=== PATIENT | female | born 1980 | race Caucasian/White ===

== ENCOUNTER → 2017-05-11 | Day surgery (SDC) | payer OTHER ==
[~2017-05-11] MED LIST: ACETAMINOPHEN 1000 MG/100 ML IV ONE; AMITRIPTYLINE H10 MG PO; BUPIVACAINE HCL 0.5% 10ML MPF VIAL INJ ONE; CLINDAMYCIN PHOS 900MG/ D5W 50 50 ML IV ONE; DEXAMETHASONE SOD PHOS INJ 4 MG/ML VIAL ONE; DOXYCYCLINE HY100 MG PO; FENTANYL CITRATE/PF 100MCG/2 ML INJ ONE; KETOROLAC TROMETHAMINE 30 MG/ML VIAL ONE; LEVSIN0.125 MG SL; LIDOCAINE HCL 2% LOCAL INJ 5 ML SDV VIAL INJ ONE; MELOXICAM7.5 MG PO; MEPERIDINE HCL INJ 50 MG/ML INJ ONE; MIDAZOLAM HCL 2 MG/2 ML VIAL ONE; MULTI-VITAMIN1 EACH PO; NEOMYCIN/POLYMYX/BACITR OINT 0.9 GM PKT ONE; ONDANSETRON HCL INJ 2 MG/ML VIAL ONE; PROPOFOL IV EMULSION 10 MG/ML 20 ML VIAL ONE; SEVOFLURANE INHAL SOLN 250 ML PEN BTL ONE; TIZANIDINE HCL4 MG PO; VIT D PO
--- NOTE | 2017-08-03 10:30 | Operative Report ---
DATE OF PROCEDURE: May 11, 2017 PREOPERATIVE DIAGNOSES 1. Hallux adductor valgus. 2. Dislocation of the interphalangeal joint. 3. Degenerative joint disease, Lisfranc's. POSTOPERATIVE DIAGNOSES 1. Hallux adductor valgus. 2. Dislocation of the interphalangeal joint. 3. Degenerative joint disease, Lisfranc's. PROCEDURES 1. Evgeny bunionectomy, left foot. 2. Edy osteotomy, left foot. 3. Human allograft injection of Lisfranc's joint, left foot. 4. Use of a posterior splint, left foot. PATHOLOGY: None. ANESTHESIA: General anesthetic. HEMOSTASIS: Pneumatic ankle tourniquet at 250 mmHg. ESTIMATED BLOOD LOSS: 10 mL. MATERIALS: Two screws from [employer], a 25 and 20, and a 10-mm staple from the right. Use of human allograft for injection into the joint. COMPLICATIONS: None. CONDITION: Stable. PROCEDURE IN DETAIL: Under mild sedation, the patient was brought to the operating room and placed on the operating table in the supine position. Following IV sedation, anesthesia was obtained by general anesthetic. At this point, the left foot was scrubbed, prepped and draped in the usual aseptic manner. It was then lowered to the table after the pneumatic ankle tourniquet was inflated. Attention was then directed to the dorsal aspect of the left foot where an incision was made overlying the 1st metatarsophalangeal joint. The incision was deepened via sharp and blunt dissection down to the level of the capsule. A capsulotomy was then performed. The capsule was then reflected off the head of the 1st metatarsal. Utilizing an oscillating saw, the 1st medial exostosis was then removed. At this point, a 60-degree Chevron type of osteotomy was performed. The head of the 1st metatarsal was moved into a more lateral position helping to close a high metatarsal angle. Two screws of a 25 and 20 were used for compression and fixation. There was noted to be adequate alignment clinically with the use of intraoperative fluoroscopy. IPJ fusion of the left foot. At this point, a linear incision was made overlying the IPJ. The incision was deepened down to the level of the capsule. Linear capsulotomy was then performed. At this point, the joint was visualized. It was noted to be about 40% dislocation. The fusion was then performed. It was prepared for arthrodesis. Two jeremiah were used from [employer] in order to fixate the fusion. There was noted to be adequate alignment clinically and with the use of intraoperative fluoroscopy. The area was then thoroughly flushed with a copious amount of normal sterile saline solution. The areas were then closed with the 1st layer with 2-0 Vicryl, 3-0 Vicryl and 4-0 nylon. Human allograft was then used into the Lisfranc's joints of the left foot, the area of DJD and the bursa. Clean dressing was applied consisting of Adaptic, 4 x 4's, Kerlix, and Webril was applied. A posterior splint was applied and secured utilizing an Sandeep bandage. The tourniquet was deflated. There was noted to be hyperemic response to all the digits. The patient tolerated the procedure and anesthesia well without complications. Was transferred to the recovery room with vital signs stable and vascular status intact to both feet. The patient will be discharged when she meets criteria. She was given instructions to be strictly nonweightbearing, to ice and elevate the foot at rest. Follow up with me in the office and to call the office for any questions, concerns or any problems arise. Job#: [id number] RAVINDER
== END | disposition home or self-care (01) ==
LOC: OR 09:09
PROVIDERS: ATTEND Podiatrist Foot & Ankle Surgery
DX: M20.12 Hallux valgus (acquired), left foot (principal); S93.112A Dislocation of interphalangeal joint of left great toe, initial encounter; M19.072 Primary osteoarthritis, left ankle and foot; M20.62 Acquired deformities of toe(s), unspecified, left foot; G47.33 Obstructive sleep apnea (adult) (pediatric); X58.XXXA Exposure to other specified factors, initial encounter
CPT/HCPCS: 28299; 76001; 81025; C1713 ×3; J1100; J1885; J2001; J2175; J2250; J2405; J3590

== ENCOUNTER → 2017-07-20 | Day surgery (SDC) | payer OTHER ==
[~2017-07-20] MED LIST changes: -BUPIVACAINE HCL 0.5% 10ML MPF VIAL INJ ONE; +BUPIVACAINE HCL 0.5% INJ 30 ML VIAL INJ ONE; -MEPERIDINE HCL INJ 50 MG/ML INJ ONE; -NEOMYCIN/POLYMYX/BACITR OINT 0.9 GM PKT ONE; +NEOSTIGMINE 1 MG/ML 10ML VIAL ONE
--- NOTE | 2017-07-20 13:59 | Operative Report ---
DATE OF PROCEDURE: July 20, 2017 PREOPERATIVE DIAGNOSES 1. Hallux abductovalgus. 2. Hallux interphalangeus with deviated interphalangeal joint. POSTOPERATIVE DIAGNOSES 1. Hallux abductovalgus. 2. Hallux interphalangeus with deviated interphalangeal joint. PROCEDURES 1. Evgeny bunionectomy. 2. Interphalangeal joint fusion. 3. Use of human allograft. 4. Use of posterior splint. 5. Use of intraoperative fluoroscopy. PATHOLOGY: None. ANESTHESIA: General anesthetic. HEMOSTASIS: Pneumatic thigh tourniquet at 250 mmHg. ESTIMATED BLOOD LOSS: Less than 10 mL. MATERIALS: 12 mL of 0.5 Marcaine plain given preop. COMPLICATIONS: None. CONDITION: Stable. PROCEDURE IN DETAIL: Under mild sedation, the patient was brought to the operating room and placed on the operating table in the supine position. Following IV sedation, anesthesia was obtained with a general anesthetic. At this point, the right foot was scrubbed, prepped and draped in the usual aseptic manner. It was then lowered to the table. Evgeny bunionectomy: Attention was then directed to the dorsal aspect of the right foot, where a linear incision was made overlying the 1st metatarsophalangeal joint. The incision was deepened via sharp and blunt dissection down to the level of the capsule. An inverted-L capsulotomy was then performed. At this point, a lateral release was performed in order to let the sesamoid swing into a more anatomical position. The extensor tendon was also tenotomized thereby reducing the contracture at the metatarsophalangeal joint. Attention was then directed to the 1st metatarsal head where the exostosis medially was removed utilizing an oscillating saw. The foot was then positioned for a [id number], 60-degree osteotomy. The head of the metatarsal was then moved into a more lateral position, helping to close the intermetatarsal angle. The osteotomy was fixated utilizing 2.5 and 2.0 screws from [employer]. There was noted to be adequate compression clinically and with the use of intraop fluoroscopy. IPJ fusion: Attention was then directed to the IPJ, where a curvilinear incision was made overlying the joint. The incision was deepened down to the level of the tendon. The extensor tendon was then tenotomized. At this point, the joint was then visualized. There was noted to be a large amount of deviation at the joint. An Edy osteotomy would be able to correct the deformity, so an IPJ fusion was performed. The joint was prepared. There was noted to be adequate alignment clinically and with the use of intraop fluoroscopy. At this point, two 10-mm jeremiah were then used for permanent fixation. There was noted to be adequate alignment clinically and with the use of intraop fluoroscopy. The area was then flushed with copious amounts of normal sterile saline solution. The use of human allograft was then used in order to promote healing, to prevent adhesions and to promote healing at the arthrodesis site. The area were then closed, closing the deepest layer with 3-0 Vicryl, then 4-0 Vicryl, then 4-0 nylon. A clean dressing was applied consisting of Adaptic ointment, 4 x 4's, Kerlix, and Webril. A posterior splint was applied and was secured utilizing an Sandeep bandage. The tourniquet was deflated, and there was noted to be hyperemic response to all the digits. The patient tolerated the procedure and the anesthesia well without complications and was transported to the recovery room with vital signs stable and vascular status intact to both feet. The patient will be discharged home when she meets criteria. She was given instructions to be strictly nonweightbearing, to ice and elevate the foot while at rest, to follow up with me in the office, and to call the office if any questions, concerns or any problems arise. Job#: [id number] JORGE
== END | disposition home or self-care (01) ==
LOC: OR 07:32
PROVIDERS: ATTEND Podiatrist Foot & Ankle Surgery
DX: M20.11 Hallux valgus (acquired), right foot (principal); M20.61 Acquired deformities of toe(s), unspecified, right foot; E66.01 Morbid (severe) obesity due to excess calories; K58.9 Irritable bowel syndrome, unspecified
CPT/HCPCS: 28299; 76000; 81025; J1100; J1885; J2001; J2250; J2405; J2710

== ENCOUNTER 2018-02-05 16:30 | Observation (INO) | payer OTHER ==
[~2018-02-05] VITALS: Ht 165.1 cm; Wt 119.0 kg
[~2018-02-05 16:30] MED LIST changes: -ACETAMINOPHEN 1000 MG/100 ML IV ONE; -BUPIVACAINE HCL 0.5% INJ 30 ML VIAL INJ ONE; -CLINDAMYCIN PHOS 900MG/ D5W 50 50 ML IV ONE; -FENTANYL CITRATE/PF 100MCG/2 ML INJ ONE; -KETOROLAC TROMETHAMINE 30 MG/ML VIAL ONE; -MIDAZOLAM HCL 2 MG/2 ML VIAL ONE; -NEOSTIGMINE 1 MG/ML 10ML VIAL ONE; +ROCURONIUM BROMIDE 10 MG/ML 5ML VIAL ONE
[2018-02-05] MEDS ORDERED: ONDANSETRON HCL INJ 2 MG/ML VIAL IV NR (16:51)
[2018-02-05] MEDS ORDERED: DIATRIZOATE MEGL/DIATRIZOA SOD 30 ML BTL PO ONE (16:58)
[2018-02-05] MEDS ORDERED: MULTIVITAMINS- 12 INJECTION 10 ML, FOLIC ACID MDV 5 MG, THIAMINE HCL INJ 100 MG in SODI... IV ONE (17:00)
[2018-02-05 17:27] LABS: BASOPHILS % 0.3 % (0.0-1.0); EOSINOPHILS # (AUTO) 0.1 (0.0-0.4); EOSINOPHILS % 0.9 % (0.0-6.0); HEMATOCRIT 39.6 % (34.2-44.1); HEMOGLOBIN 13.4 g/dL (12.0-16.0); LYMPHOCYTES # (AUTO) 2.4 (1.0-3.2); LYMPHOCYTES % 31.9 % (18.0-39.1); MEAN CORPUSCULAR HEMOGLOBIN 31.2 pg (28-32); MEAN CORPUSCULAR HGB CONC 33.8 g/dL (31-35); MEAN CORPUSCULAR VOLUME 92.1 fL (81-99); MONOCYTES # (AUTO) 0.6 (0.2-0.8); MONOCYTES % 7.4 % (4.4-11.3); NEUTROPHILS # (AUTO) 4.4 (2.1-6.9); NEUTROPHILS % 59.2 % (38.7-80.0); PLATELET COUNT 269 x10e3/uL (140-360); RED CELL DISTRIBUTION WIDTH 12.4 % (11.7-14.4)
[2018-02-05 17:47] LABS: HCG,QUANTITATIVE < 1.20 mIU/mL (0-10)
[2018-02-05 17:56] LABS: CLARITY,URINE HAZY (CLEAR); COLOR,URINE YELLOW (YELLOW)
[2018-02-05 17:57] LABS: BACTERIA,URINE FEW /HPF; BILIRUBIN,URINE NEGATIVE (NEGATIVE); EPITHELIAL CELLS,URINE MANY /LPF; KETONES,URINE TRACE (NEGATIVE); LEUKOCYTE ESTERASE ,URINE NEGATIVE (NEGATIVE); NITRITE,URINE NEGATIVE (NEGATIVE); PROTEIN,URINE DIPSTICK NEGATIVE (NEGATIVE); RBC,URINE 0-5 /HPF (0-5); URINE UROBILINOGEN 0.2 mg/dL (0.2 - 1); WBC,URINE (MAN) 0-5 /HPF (0-5)
[2018-02-05 18:18] LABS: ALANINE AMINOTRANSFERASE 42 IU/L (0-55); ALBUMIN 3.9 g/dL (3.5-5.0); ALBUMIN/GLOBULIN RATIO 0.9 (0.8-2.0); ALKALINE PHOSPHATASE 56 IU/L (40-150); ANION GAP 16.9 mmol/L (8-16); BLOOD UREA NITROGEN 12 mg/dL (7-26); BUN/CREATININE RATIO 16 (6-25); CARBON DIOXIDE 25 mmol/L (22-29); CHLORIDE 102 mmol/L (98-107); CREATININE, SERUM 0.75 mg/dL (0.57-1.11); EST GLOMERULAR FILTRATION RATE > 60 ML/MIN (60-); GLUCOSE 96 mg/dL (74-118); POTASSIUM 3.9 mmol/L (3.5-5.1); SODIUM 140 mmol/L (136-145)
[2018-02-05 19:15] LABS: AMYLASE 48 U/L (25-125); LIPASE 15 U/L (8-78); MAGNESIUM 2.1 MG/DL (1.3-2.1)
[2018-02-05] MEDS ORDERED: MORPHINE SULFATE 2 MG/ML SYR IV STA (19:40)
--- NOTE | 2018-02-05 19:40 | Diagnostic Imaging Report ---
EXAM: CT ABDOMEN/PELVIS W DATE: 02/05/2018 4:51 PM INDICATION: \S\RLQ pain, PSH: Lap band 04/2015 \S\[id number] \S\1909 COMPARISON: None TECHNIQUE: The abdomen and pelvis were scanned using a multidetector helical scanner. Coronal and sagittal reformations were obtained. IV Contrast: 100 ml Isovue 300/370 FINDINGS: LOWER THORAX: No consolidations LIVER/BILIARY: No masses. No ductal dilatation. GALLBLADDER: Unremarkable SPLEEN: Unremarkable PANCREAS: Unremarkable ADRENALS: No nodules KIDNEYS: No suspicious renal masses. Mild right pelviectasis without ureterectasis. GI TRACT: Postsurgical changes status post gastric bypass.. Appendix is thickened with surrounding inflammatory changes. VESSELS: Unremarkable PERITONEUM/RETROPERITONEUM: No free air or fluid LYMPH NODES: No lymphadenopathy REPRODUCTIVE ORGANS/BLADDER: Unremarkable SOFT TISSUES: Unremarkable BONES: No suspicious bone lesions. IMPRESSION: Acute uncomplicated appendicitis. Discussed with Dr. Monroy at 730 PM on 02/05/18 Signed by: Dr Sunshine Floyd MD on 02/05/2018 7:37 PM
[2018-02-05] MEDS ORDERED: ACETAMINOPHEN 1000 MG/100 ML IV PRN (20:00)
[2018-02-05] MEDS: LEVOFLOXACIN 500MG/D5W 100ML IV SCH (20:16)
[2018-02-05] MEDS: ONDANSETRON HCL INJ 2 MG/ML VIAL IV PRN (20:31)
[2018-02-05] MEDS: METRONIDAZOLE 500MG/NS 100ML 100 ML IV SCH ×2 (20:54→23:03)
[2018-02-05] MEDS: SODIUM CHLORIDE 0.9% 1000ML 1,000 ML IV SCH ×2 (20:54→22:48)
[2018-02-05 21:05] VITALS: BP 117/55
--- NOTE | 2018-02-05 21:26 | Pre Op History & Physical ---
CHIEF COMPLAINT: Abdominal pain. HISTORY OF PRESENT ILLNESS: The patient is a pleasant 38-year-old female, status post gastric bypass some 3 years ago having lost about 130 lbs, now weighing about 245 lbs with a BMI of approximately 30-42, who is admitted via the emergency room complaining of abdominal pain since . The pain began in the midabdominal area and then, seemed to localize to the right lower quadrant. The patient had some nausea today. She had some loose bowel movements during the last 2 days. However, she has a history of irritable bowel syndrome under the GI care of Dr. Barksdale. The patient in the emergency room was found to have acute appendicitis by CT. White count was normal. She had no fever. PAST MEDICAL HISTORY: No history of hypertension, high blood pressure, diabetes, epilepsy, convulsion. There is history of obesity. He has history of irritable bowel syndrome as previously described. SURGICAL HISTORY: As previously stated. ALLERGIES: SHE HAS NO KNOWN ALLERGIES. CURRENT MEDICATIONS: Amitriptyline and another medicine, which she does not remember. SOCIAL HISTORY: She does not drink. She does not smoke. REVIEW OF SYSTEMS: Unremarkable except for what has been stated in the history of present illness. PHYSICAL EXAMINATION GENERAL: A 38-year-old female, in no acute distress. VITAL SIGNS: She is afebrile with stable vital signs. HEAD, EYES, EARS, NOSE, AND THROAT: No active process. NECK: Supple. Trachea midline. LUNGS: Clear. HEART: Regular sinus rhythm. ABDOMEN: Soft, obese, with tenderness on the right lower quadrant over McBurney's point on deep palpation. Examination of the flanks reveals no tenderness. EXTREMITIES: No clubbing, cyanosis or edema. NEUROLOGIC: Nonfocal. ASSESSMENT: Acute uncomplicated appendicitis. The plan is to admit, IV antibiotics, hydration, and proceed with laparoscopy tomorrow at 9 a.m. Job#: [id number] CQ
[2018-02-05 21:53] VITALS: BP 117/55
[2018-02-05 22:06] VITALS: BP 117/55
[2018-02-05] MEDS ORDERED: IOPAMIDOL 370 MG/ML 200 ML INFUS..BTL INJ ONE (22:17)
[2018-02-05] MEDS ORDERED: SODIUM CHLORIDE 0.9% 50ML 50 ML ONE (22:17)
[2018-02-06] VITALS (8 sets, daily range): BP systolic 107–122; BP diastolic 53–69
[2018-02-06] MEDS: HYDROMORPHONE 1MG/1ML INJ IV PRN ×4 (00:17→19:43)
[2018-02-06] MEDS: METRONIDAZOLE 500MG/NS 100ML 100 ML IV SCH ×4 (05:22→23:13)
[2018-02-06 05:49] LABS: BASOPHILS % 0.3 % (0.0-1.0); EOSINOPHILS # (AUTO) 0.1 (0.0-0.4); EOSINOPHILS % 0.9 % (0.0-6.0); HEMATOCRIT 34.1 % (34.2-44.1); HEMOGLOBIN 11.6 g/dL (12.0-16.0); LYMPHOCYTES # (AUTO) 2.5 (1.0-3.2); LYMPHOCYTES % 37.4 % (18.0-39.1); MEAN CORPUSCULAR HEMOGLOBIN 31.6 pg (28-32); MEAN CORPUSCULAR VOLUME 92.9 fL (81-99); MONOCYTES # (AUTO) 0.6 (0.2-0.8); MONOCYTES % 9.1 % (4.4-11.3); NEUTROPHILS # (AUTO) 3.4 (2.1-6.9); NEUTROPHILS % 52.1 % (38.7-80.0); PLATELET COUNT 222 x10e3/uL (140-360); RED BLOOD COUNT 3.67 x10e6/uL (3.6-5.1); RED CELL DISTRIBUTION WIDTH 12.5 % (11.7-14.4)
[2018-02-06 06:28] LABS: ALANINE AMINOTRANSFERASE 31 IU/L (0-55); ALBUMIN 3.2 g/dL (3.5-5.0); ALBUMIN/GLOBULIN RATIO 0.9 (0.8-2.0); ALKALINE PHOSPHATASE 46 IU/L (40-150); ANION GAP 10.7 mmol/L (8-16); BLOOD UREA NITROGEN 10 mg/dL (7-26); BUN/CREATININE RATIO 14 (6-25); CARBON DIOXIDE 26 mmol/L (22-29); CHLORIDE 103 mmol/L (98-107); CREATININE, SERUM 0.72 mg/dL (0.57-1.11); EST GLOMERULAR FILTRATION RATE > 60 ML/MIN (60-); GLUCOSE 87 mg/dL (74-118); POTASSIUM 3.7 mmol/L (3.5-5.1); SODIUM 136 mmol/L (136-145)
[2018-02-06] MEDS: ONDANSETRON HCL INJ 2 MG/ML VIAL IV PRN ×2 (07:25→15:42)
[2018-02-06] MEDS ORDERED: FENTANYL CITRATE/PF 100MCG/2 ML INJ ONE ×2 (08:47→11:23)
[2018-02-06] MEDS ORDERED: MIDAZOLAM HCL 2 MG/2 ML VIAL ONE (08:48)
[2018-02-06] MEDS ORDERED: BUPIVACAINE 0.25%/EPI 30ML SDV INJ ONE (08:49)
[2018-02-06] MEDS ORDERED: LEVOFLOXACIN 500MG/D5W 100ML 100 ML IV ONE (11:08)
--- NOTE | 2018-02-06 11:59 | Operative Report ---
DATE OF PROCEDURE: February 06, 2018 PREOPERATIVE DIAGNOSIS: Acute appendicitis. POSTOPERATIVE DIAGNOSIS: Acute appendicitis. PROCEDURE PERFORMED: Laparoscopic appendectomy. ANESTHESIA: General endotracheal. ESTIMATED BLOOD LOSS: Minimal. DRAINS: None. COMPLICATIONS: None. INDICATIONS AND FINDINGS: The patient is a 38-year-old, morbidly obese female status post gastric bypass 2 years ago, admitted complaining of abdominal pain since prior to admission. The patient came to the emergency room and was found to have acute appendicitis. White count was normal. INTRAOPERATIVE FINDINGS: Acute retrocecal appendicitis with a short and inflamed appendix that was located behind the cecum. DESCRIPTION OF PROCEDURE: With the patient lying on the operative table in the supine position, after administration of general endotracheal anesthesia, she was prepped and draped for laparoscopic appendectomy. The procedure was begun by establishing a pneumoperitoneum in the umbilical site after a stab wound was made in that location and the Veress needle introduced. A pneumoperitoneum was insufflated to 15 mm of pressure, and then the 11-12 trocar was placed. We placed 3 extra trocars, one in the right upper quadrant, one in the suprapubic area and the other one in the left lower quadrant, in order to facilitate exposure of the appendix. The appendix was then identified lying behind the cecum and attached to the lateral wall. Then we had to mobilize the cecum until we identified the appendix. It was carried posteriorly. After we mobilized the appendix, as we did it, we had to cauterize the mesoappendix gradually until the only left structure was the appendix as it attached to the cecal junction. The appendix at that level was very soft and pliable. We had full visualization of the terminal ileum as it joined the cecum. Then that was carefully preserved. We fired the Endo DIANA using the blue stapler and then placed the appendix in an Endo bag and removed it through the umbilical port. We inspected the operative field. There was some oozing coming from the appendiceal mesentery. No pumper, just some oozing from the fat, and that was cauterized. Then we irrigated the right lower quadrant, the pelvis and the right gutter until the effluent was fluid. We ascertained that there was no active bleeding, which none was seen, and no bowel leak, none was seen. Then we released the pneumoperitoneum and closed the wound using #0 Vicryl for the umbilical fascia, 3-0 Vicryl for the subcutaneous tissue in that location as well as subxiphoid port, and the skin of all the ports was closed using jeremiah. Marcaine 0.25% with epinephrine was given as a local block. The patient tolerated the procedure well and was taken to the recovery room in stable condition. Job#: [id number]
[2018-02-06] MEDS: LACTATED RINGER'S 1,000 ML INJ SCH ×2 (12:42→19:43)
[2018-02-06] MEDS: LEVOFLOXACIN 500MG/D5W 100ML IV SCH (19:42)
[2018-02-07 01:36] VITALS: BP 121/69
[2018-02-07] MEDS: HYDROMORPHONE 1MG/1ML INJ IV PRN ×3 (03:15→19:59)
[2018-02-07] MEDS: LACTATED RINGER'S 1,000 ML INJ SCH (03:52)
[2018-02-07 04:00] VITALS: BP 125/56
[2018-02-07] MEDS: METRONIDAZOLE 500MG/NS 100ML 100 ML IV SCH ×4 (05:00→23:06)
[2018-02-07 05:30] LABS: BASOPHILS % 0.1 % (0.0-1.0); EOSINOPHILS % 0.2 % (0.0-6.0); HEMATOCRIT 33.5 % (34.2-44.1); LYMPHOCYTES # (AUTO) 2.3 (1.0-3.2); LYMPHOCYTES % 28.2 % (18.0-39.1); MEAN CORPUSCULAR HGB CONC 32.8 g/dL (31-35); MEAN CORPUSCULAR VOLUME 94.4 fL (81-99); MONOCYTES # (AUTO) 0.7 (0.2-0.8); MONOCYTES % 8.9 % (4.4-11.3); NEUTROPHILS # (AUTO) 5.1 (2.1-6.9); NEUTROPHILS % 62.4 % (38.7-80.0); PLATELET COUNT 255 x10e3/uL (140-360); RED BLOOD COUNT 3.55 x10e6/uL (3.6-5.1); RED CELL DISTRIBUTION WIDTH 12.3 % (11.7-14.4)
[2018-02-07 06:05] LABS: ANION GAP 13.3 mmol/L (8-16); BLOOD UREA NITROGEN 9 mg/dL (7-26); BUN/CREATININE RATIO 12 (6-25); CALCIUM 9.4 mg/dL (8.4-10.2); CARBON DIOXIDE 27 mmol/L (22-29); CHLORIDE 103 mmol/L (98-107); CREATININE, SERUM 0.73 mg/dL (0.57-1.11); EST GLOMERULAR FILTRATION RATE > 60 ML/MIN (60-); GLUCOSE 94 mg/dL (74-118); POTASSIUM 4.3 mmol/L (3.5-5.1); SODIUM 139 mmol/L (136-145)
[2018-02-07 08:05] VITALS: BP 123/58
[2018-02-07] MEDS: HYDROCODONE/APAP 7.5MG-325MG 1 EA TAB PO PRN ×2 (08:21→16:30)
[2018-02-07 11:28] VITALS: BP 135/61
[2018-02-07] MEDS ORDERED: SODIUM CHLORIDE 0.9% 250ML 250 ML ONE (13:12)
[2018-02-07 15:51] VITALS: BP 127/60
[2018-02-07] MEDS: ONDANSETRON HCL INJ 2 MG/ML VIAL IV PRN (17:40)
[2018-02-07] MEDS: LEVOFLOXACIN 500MG/D5W 100ML IV SCH (19:59)
[2018-02-07 20:00] VITALS: BP_SYST 117; BP_SYST 174; BP_DIAS 63; BP_DIAS 81
[2018-02-08] VITALS: BP 117/56
[2018-02-08] MEDS: HYDROMORPHONE 1MG/1ML INJ IV PRN (02:52)
[2018-02-08 04:00] VITALS: BP 106/60
[2018-02-08] MEDS: METRONIDAZOLE 500MG/NS 100ML 100 ML IV SCH (05:25)
[2018-02-08] MEDS: HYDROCODONE/APAP 7.5MG-325MG 1 EA TAB PO PRN (06:33)
[2018-02-08 08:28] VITALS: BP 107/60
== END 2018-02-08 11:21 | disposition home or self-care (01) ==
LOC: ER 16:30 → INTOOBSV 19:51 → ERHOLD 19:51 → MED/SURG 20:50 → IMCU 02-07 11:22
PROVIDERS: ADMIT Surgery; ATTEND Surgery
DX: K35.3 Acute appendicitis with localized peritonitis (principal); Z98.84 Bariatric surgery status
CPT/HCPCS: 36415 ×3; 44970; 74177; 80048; 80053 ×2; 81001; 82150; 83605; 83690; 83735; 84702; 85025 ×3; 87040; 87086; 88304; 96361; 99284; C1766; G0378 ×4; J1100; J1170 ×3; J1956 ×3; J2001; J2250; J2270; J2405 ×3; J3411; J7030; J7050; J7120; Q9967

== ENCOUNTER → 2018-05-10 | Day surgery (SDC) | payer OTHER ==
[~2018-05-10] MED LIST changes: +ACETAMINOPHEN/CODEINE 300MG - 30MG TAB ONE; +BUPIVACAINE HCL 0.5% INJ 30 ML VIAL INJ ONE; +CEFAZOLIN SOD 2 GM/D5W 50ML 50 ML IV ONE; +KETOROLAC TROMETHAMINE 30 MG/ML VIAL ONE; +MIDAZOLAM HCL 2 MG/2 ML VIAL ONE; +NEOSTIGMINE 1 MG/ML 10ML VIAL ONE; +OMEPRAZOLE40 MG PO; -ROCURONIUM BROMIDE 10 MG/ML 5ML VIAL ONE
--- OUTSIDE RECORDS SUMMARY | 2018-05-10 06:24 | XMS REPORT | Summary of Care ---
Author Author Sanna Robles M.A. Unknown Address [facility] Phone Unavailable Care Team Providers Care Pricing Lead Name Role Phone GENARO WALLS M.D. Unavailable Unavailable OLGA MARR M.D. Unavailable Unavailable GENARO PUTNAM DO Unavailable Unavailable Unavailable Unavailable Functional Status Name Dates Details Functional status health issues are not documented Status: Name Dates Details Cognitive status health issues are not documented Status: Problems Name Dates Details Mass of joint of left elbow (719.62, M25.822) Status: Active S/P gastric bypass (V45.86, Z98.84) Status: Active Right knee pain (719.46, M25.561) Status: Active Pain of left breast (611.71, N64.4) Status: Active Encounter for gynecological examination with Papanicolaou smear of cervix (V72.31, Z01.419) Status: Active Cyst, ovarian (620.2, N83.209) Status: Active GERD (gastroesophageal reflux disease) (530.81, K21.9) Status: Active Abdominal pain (789.00, R10.9) Status: Active Medications Name Dates Details TiZANidine HCl - 4 MG Oral Capsule TAKE 1 CAPSULE DAILY Active Meloxicam 7.5 MG Oral Tablet TAKE 1 TABLET DAILY WITH FOOD. Days: 30; Qty: 30 X Tablet; Refill: 3 * Quantity: 30 Refills: 3 GENARO WALLS M.D. * Start : 10-Mar-2017 Active Amitriptyline HCl - 10 MG Oral Tablet TAKE 1 TABLET AT BEDTIME. * Quantity: 30 Refills: 11 OLGA MARR M.D. * Start : 17-Jun-2017 Active Hyoscyamine Sulfate 0.125 MG Sublingual Tablet Sublingual PLACE 0.125 MG Twice daily * Quantity: 90 Refills: OLGA REAVES M.D. * Start : 20-Aug-2017 Active Omeprazole 40 MG Oral Capsule Delayed Release TAKE 1 CAPSULE Twice daily 30 minutes before breakfast and dinner * Quantity: 60 Refills: 11 OLGA MARR M.D. Start : 30-Sep-2017 Active Allergies and Adverse Reactions Name Dates Details Penicillins (Allergy) Status: Active Past Medical History Name Dates Details History of back pain (V13.59, Z87.39) Status: Resolved History of Hernia (553.9, K46.9) Status: Resolved Procedures Procedure Dates Details History of Paraesophageal hiatus hernia repair Completed History of Gastric bypass surgery Completed History of Foot surgery Completed Immunization Name Dates Details Immunizations not documented Family History Name Dates Details Family history of liver cancer (V16.0, Z80.0) Status: Active Name Dates Details Family history of hypertension (V17.49, Z82.49) Status: Active Family history of colonic polyps (V18.51, Z83.71) Status: Active Family history of skin cancer (V16.8, Z80.8) Status: Active Name Dates Details Family history of malignant neoplasm of uterus (V16.49, Z80.49) Status: Active Family history of skin cancer (V16.8, Z80.8) Status: Active Name Dates Details Family history of arthritis (V17.7, Z82.61) Status: Active Name Dates Details Family history of hypertension (V17.49, Z82.49) Status: Active Family history of arthritis (V17.7, Z82.61) Status: Active Family history of skin cancer (V16.8, Z80.8) Status: Active Name Dates Details Family history of malignant neoplasm of prostate (V16.42, Z80.42) Status: Active Social History Name Dates Details - Status: Name Dates Details Never smoker Vital Signs Date Test Result Details [id number] BP Systolic 146 mm[Hg] Status: Comments: Location: LUE; Position: Sitting BP Diastolic 87 mm[Hg] Status: Comments: Location: LUE; Position: Sitting Height 65 in Status: Weight 264.4 lb Status: Body Mass Index Calculated 44 kg/m2 Status: Body Surface Area Calculated 2.23 m2 Status: Temperature 98.5 f Status: Comments: Method: Oral Heart Rate 64 /min Status: Comments: Location: L Brachial Artery; Respiration Rate 18 /min Status: Physical Findings 4 Status: Comments: Pain Scale Results Date Description Value Details Results not documented Plan of Care Name Dates Details Planned Observations Planned Goals not documented Planned Encounters Appointment; OLGA MARR M.D. On: 25-Feb-2018 13:00 Interventions Provided Medication Changes* Omeprazole 40 MG Oral Capsule Delayed Release - Renew Plan* Continue PPI, increase to twice daily dosing. Patient to take antacids as needed. * Continue amitriptyline and hyoscyamine. * Return to clinic in 2 months. Patient is to call for symptoms worsen Instructions Name Dates Details Instructions not documented Encounters Appointment; OLGA MARR M.D. Encounter Diagnosis: Problem not documented On: 06-Jan-2017 11:30 Appointment; OLGA MARR M.D. Encounter Diagnosis: Problem not documented On: 28-Jan-2017 9:15 Appointment; TENZIN KRAUS M.D. Encounter Diagnosis: Problem not documented On: 12-Feb-2017 9:00 Appointment; WESLEY JOHNSON M.D. Encounter Diagnosis: Problem not documented On: 25-Feb-2017 8:00 Appointment; GENARO WALLS M.D. Encounter Diagnosis: Problem not documented On: 10-Mar-2017 10:30 Appointment; OLGA MARR M.D. Encounter Diagnosis: Problem not documented On: 17-Jun-2017 11:00 Appointment; MATT HOROWITZ M.D. Encounter Diagnosis: Problem not documented On: 20-Sep-2017 13:00 Appointment; BUDDY BOYD M.D. Encounter Diagnosis: Problem not documented On: 28-Sep-2017 11:00 Appointment; OLGA MARR M.D. Encounter Diagnosis: Problem not documented On: 30-Sep-2017 13:45 Appointment; OLGA MARR M.D. Encounter Diagnosis: Problem not documented On: 20-Dec-2017 13:45
[2018-05-10 09:45] VITALS: BP 116/72
--- NOTE | 2018-05-10 13:19 | Operative Report ---
DATE OF PROCEDURE: May 10, 2018 PREOPERATIVE DIAGNOSES 1. Chronic plantar fasciitis, left foot. 2. 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 POSTOPERATIVE DIAGNOSES 1. Chronic plantar fasciitis, left foot. 2. 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 PROCEDURES 1. Endoscopic plantar fasciotomy, left foot. 2. Excision of plantar fibroma, left foot. PATHOLOGY: Removed fibroma. ANESTHESIA: General anesthetic. HEMOSTASIS: Pneumatic ankle tourniquet. ESTIMATED BLOOD LOSS: Less than 10 mL. MATERIALS: None. INJECTABLES: 20 mL of 0.5% Marcaine plain. COMPLICATIONS: None. CONDITION: Stable. PROCEDURE IN DETAIL: Under mild sedation, the patient was brought to the operating room and placed on the operating table in the supine position. Following IV sedation, anesthesia was obtained with a general anesthetic. At this point, the left foot was scrubbed, prepped and draped in the usual aseptic manner. It was then lowered to the table. Attention was directed to the medial aspect of the left foot, where a linear incision was made overlying the insertion of the plantar fascia into the calcaneus. The incision was deepened via sharp and blunt dissection, taking care to retract or cauterize neurovascular structures as necessary. It was deepened down to the level of the plantar fascia. A fascial isolator was then used to isolate the fascia. A trocar and cannula were then inserted. The trocar was removed. A camera was inserted. Medial, central and lateral bands were then visualized. Utilizing a fascial blade, the medial and central bands were transected through and through, leaving the lateral band intact. All instruments were then removed. Excision of fibroma, left foot: Attention was then directed to the plantar aspect of the left foot where right at the tarsometatarsal joint plantarly, there was a palpable discrete fibroma. A curvilinear incision was made following the skin lines. The incision was deepened down to the level of the fibroma, taking care to retract or cauterize the neurovascular structures as necessary. Once the fibroma was then isolated, it was transected utilizing a 15 blade. It was passed from the operating table and sent for pathology. All areas were then flushed with copious amounts of normal sterile saline solution. The area was then closed, closing the deepest layer with 4-0 Vicryl and the next layer with 4-0 nylon. A clean dressing was applied, consisting of Adaptic, 4 x 4's, Kerlix and an Sandeep bandage. The tourniquet was deflated. There was noted to be hyperemic response to all the digits. The patient tolerated the procedure and anesthesia well without complications. She was transported to the recovery room with vital signs stable and vascular status intact to both feet. The patient will be discharged home when she meets criteria. She was given instructions to be strictly nonweightbearing, to ice and elevate the foot while at rest, to follow up with me in the office and to call the office if any questions, concerns or any problems arise. Job#: [id number]
== END | disposition home or self-care (01) ==
LOC: OR 06:21
PROVIDERS: ATTEND Podiatrist Foot & Ankle Surgery
DX: M72.2 Plantar fascial fibromatosis (principal); D21.22 Benign neoplasm of connective and other soft tissue of left lower limb, including hip; M54.9 Dorsalgia, unspecified; E66.01 Morbid (severe) obesity due to excess calories; K58.9 Irritable bowel syndrome, unspecified; Z88.0 Allergy status to penicillin; Z68.41 Body mass index [BMI] 40.0-44.9, adult
CPT/HCPCS: 28043; 29893; 81025; 88304; J0690; J1100; J1885; J2001; J2250; J2405; J2704; J2710

== ENCOUNTER 2018-08-09 11:33 | Emergency (ER) | payer OTHER ==
[~2018-08-09] VITALS: Ht 165.1 cm; Wt 118.8 kg
[~2018-08-09 11:33] MED LIST changes: -ACETAMINOPHEN/CODEINE 300MG - 30MG TAB ONE; -BUPIVACAINE HCL 0.5% INJ 30 ML VIAL INJ ONE; -CEFAZOLIN SOD 2 GM/D5W 50ML 50 ML IV ONE; -DEXAMETHASONE SOD PHOS INJ 4 MG/ML VIAL ONE; -KETOROLAC TROMETHAMINE 30 MG/ML VIAL ONE; -LIDOCAINE HCL 2% LOCAL INJ 5 ML SDV VIAL INJ ONE; -MIDAZOLAM HCL 2 MG/2 ML VIAL ONE; -NEOSTIGMINE 1 MG/ML 10ML VIAL ONE; -ONDANSETRON HCL INJ 2 MG/ML VIAL ONE; -PROPOFOL IV EMULSION 10 MG/ML 20 ML VIAL ONE; -SEVOFLURANE INHAL SOLN 250 ML PEN BTL ONE
--- OUTSIDE RECORDS SUMMARY | 2018-08-09 11:38 | XMS REPORT | Continuity of Care Document ---
Author Author [facility] Interface Address Unknown Phone Unavailable Problems Problem Status Onset Date Classification Date Reported Comments Source Appendicitis Active Problem 02/08/2018 [facility] Medications Medication Details Route Status Patient Instructions Ordering Provider Order Date Source Doxycycline Hyclate 100 Mg Capsule, 20 Mg Oral Three Times A Day Active 07/19/2017 [facility] Multivitamin (Multi-Vitamin Daily) 1 Each Tablet, 1 Tab Oral Daily Active 05/10/2017 [facility] Vit D , Oral Daily Active 05/10/2017 [facility] Amitriptyline Hcl 10 Mg Tablet Bedtime Active [facility] Hyoscyamine Sulfate (Levsin) 0.125 Mg Tablet As Needed Active [facility] Meloxicam 7.5 Mg Tablet As Needed Active [facility] Tizanidine Hcl 4 Mg Tablet As Needed Active [facility] Allergies, Adverse Reactions, Alerts Substance Category Reaction Severity Reaction type Status Date Reported Comments Source Penicillin RASH Unknown Allergy to Substance Active 05/11/2017 [facility] Immunizations Immunization Date Given Site Status Last Updated Comments Source Results Order Name Results Value Reference Range Date Interpretation Comments Source Automated blood basophil count (count/volume) Automated blood basophil count (count/volume) 0.0 0.0 - 0.1 02/07/2018 [facility] Automated blood basophil count as percentage of total leukocytes Automated blood basophil count as percentage of total leukocytes 0.1 0.0 - 1.0 02/07/2018 [facility] Automated blood eosinophil count Automated blood eosinophil count 0.0 0.0 - 0.4 02/07/2018 [facility] Automated blood eosinophil count as percentage of total leukocytes Automated blood eosinophil count as percentage of total leukocytes 0.2 0.0 - 6.0 02/07/2018 [facility] Automated blood hematocrit (volume fraction) Automated blood hematocrit (volume fraction) 33.5 34.2 - 44.1 02/07/2018 [facility] Automated blood lymphocyte count as percentage ot total leukocytes Automated blood lymphocyte count as percentage ot total leukocytes 28.2 18.0 - 39.1 02/07/2018 [facility] Automated blood monocyte count as percentage of total leukocytes Automated blood monocyte count as percentage of total leukocytes 8.9 4.4 - 11.3 02/07/2018 [facility] Automated blood neutrophil count Automated blood neutrophil count 5.1 2.1 - 6.9 02/07/2018 [facility] Automated blood platelet count (count/volume) Automated blood platelet count (count/volume) 255 140 - 360 02/07/2018 [facility] Automated blood segmented neutrophil count as percentage of total leukocytes Automated blood segmented neutrophil count as percentage of total leukocytes 62.4 38.7 - 80.0 02/07/2018 [facility] Automated erythrocyte mean corpuscular hemoglobin (mass per erythrocyte) Automated erythrocyte mean corpuscular hemoglobin (mass per erythrocyte) 31.0 28 - 32 02/07/2018 [facility] Automated erythrocyte mean corpuscular hemoglobin concentration measurement (mass/volume) Automated erythrocyte mean corpuscular hemoglobin concentration measurement (mass/volume) 32.8 31 - 35 02/07/2018 [facility] Automated erythrocyte mean corpuscular volume Automated erythrocyte mean corpuscular volume 94.4 81 - 99 02/07/2018 [facility] Blood erythrocytes automated count (number/volume) Blood erythrocytes automated count (number/volume) 3.55 3.6 - 5.1 02/07/2018 [facility] Blood hemoglobin measurement (moles/volume) Blood hemoglobin measurement (moles/volume) 11.0 12.0 - 16.0 02/07/2018 [facility] Blood leukocytes automated count (number/volume) Blood leukocytes automated count (number/volume) 8.11 4.8 - 10.8 02/07/2018 [facility] Blood lymphocytes count (number/volume) Blood lymphocytes count (number/volume) 2.3 1.0 - 3.2 02/07/2018 [facility] Blood monocytes automated count (number/volume) Blood monocytes automated count (number/volume) 0.7 0.2 - 0.8 02/07/2018 [facility] Estimated glomerular filtration rate (GFR) determination Estimated glomerular filtration rate (GFR) determination null 60 02/07/2018 [facility] Glucose measurement Glucose measurement 94 74 - 118 02/07/2018 [facility] Serum or plasma anion gap Serum or plasma anion gap 13.3 8 - 16 02/07/2018 [facility] Serum or plasma calcium measurement (mass/volume) Serum or plasma calcium measurement (mass/volume) 9.4 8.4 - 10.2 02/07/2018 [facility] Serum or plasma carbon dioxide, total measurement (moles/volume) Serum or plasma carbon dioxide, total measurement (moles/volume) 27 22 - 29 02/07/2018 [facility] Serum or plasma chloride measurement (moles/volume) Serum or plasma chloride measurement (moles/volume) 103 98 - 107 02/07/2018 [facility] Serum or plasma creatinine measurement (mass/volume) Serum or plasma creatinine measurement (mass/volume) 0.73 0.57 - 1.11 02/07/2018 [facility] Serum or plasma potassium measurement (moles/volume) Serum or plasma potassium measurement (moles/volume) 4.3 3.5 - 5.1 02/07/2018 [facility] Serum or plasma sodium measurement (moles/volume) Serum or plasma sodium measurement (moles/volume) 139 136 - 145 02/07/2018 [facility] Serum or plasma urea nitrogen measurement (mass/volume) Serum or plasma urea nitrogen measurement (mass/volume) 9 7 - 26 02/07/2018 [facility] Serum or plasma urea nitrogen/creatinine mass ratio Serum or plasma urea nitrogen/creatinine mass ratio 12 6 - 25 02/07/2018 [facility] Red Cell Distribution Width 12.3 11.7 - 14.4 02/07/2018 [facility] IM GRANULOCYTES % 0.2 0.0 - 1.0 02/07/2018 [facility] Absolute Immature Granulocyte (auto 0.02 0 - 0.1 02/07/2018 [facility] Plasma globulin measurement (mass/volume) Plasma globulin measurement (mass/volume) 3.5 2.3 - 3.5 02/06/2018 [facility] Serum or plasma alanine aminotransferase measurement (enzymatic activity/volume) Serum or plasma alanine aminotransferase measurement (enzymatic activity/volume) 31 0 - 55 02/06/2018 [facility] Serum or plasma albumin measurement (mass/volume) Serum or plasma albumin measurement (mass/volume) 3.2 3.5 - 5.0 02/06/2018 [facility] Serum or plasma albumin/globulin mass ratio Serum or plasma albumin/globulin mass ratio 0.9 0.8 - 2.0 02/06/2018 [facility] Serum or plasma alkaline phosphatase measurement (enzymatic activity/volume) Serum or plasma alkaline phosphatase measurement (enzymatic activity/volume) 46 40 - 150 02/06/2018 [facility] Serum or plasma protein measurement (mass/volume) Serum or plasma protein measurement (mass/volume) 6.7 6.5 - 8.1 02/06/2018 [facility] Serum or plasma total bilirubin measurement (mass/volume) Serum or plasma total bilirubin measurement (mass/volume) 0.7 0.2 - 1.2 02/06/2018 [facility] Aspartate Amino Transf (AST/SGOT) 20 5 - 34 02/06/2018 [facility] Blood culture Blood culture NO GROWTH AFTER 48 HOURS 02/05/2018 [facility] Lactic Acid Level 7.6 4.5 - 19.8 02/05/2018 [facility] Automated urine sediment leukocyte count by microscopy (number/high power field) Automated urine sediment leukocyte count by microscopy (number/high power field) null 0 - 5 02/05/2018 [facility] Bacteria detection in urine sediment by light microscopy Bacteria detection in urine sediment by light microscopy FEW NONE 02/05/2018 [facility] Epithelial cells detection in urine sediment by light microscopy Epithelial cells detection in urine sediment by light microscopy MANY NONE 02/05/2018 [facility] Erythrocytes detection in urine sediment by light microscopy Erythrocytes detection in urine sediment by light microscopy null 0 - 5 02/05/2018 [facility] Specific gravity of Urine by Test strip Specific gravity of Urine by Test strip 1.025 1.010 - 1.025 02/05/2018 [facility] Urine clarity Urine clarity HAZY CLEAR 02/05/2018 [facility] Urine color determination Urine color determination YELLOW YELLOW 02/05/2018 [facility] Urine erythrocytes detection Urine erythrocytes detection NEGATIVE NEGATIVE 02/05/2018 [facility] Urine glucose detection Urine glucose detection NEGATIVE NEGATIVE 02/05/2018 [facility] Urine ketones detection by automated test strip Urine ketones detection by automated test strip TRACE NEGATIVE 02/05/2018 [facility] Urine leukocyte esterase detection by dipstick Urine leukocyte esterase detection by dipstick NEGATIVE NEGATIVE 02/05/2018 [facility] Urine nitrite detection Urine nitrite detection NEGATIVE NEGATIVE 02/05/2018 [facility] Urine pH measurement by automated test strip Urine pH measurement by automated test strip 6 5 - 7 02/05/2018 [facility] Urine protein measurement by test strip (mass/volume) Urine protein measurement by test strip (mass/volume) NEGATIVE NEGATIVE 02/05/2018 [facility] Urine total bilirubin measurement (mass/volume) Urine total bilirubin measurement (mass/volume) NEGATIVE NEGATIVE 02/05/2018 [facility] Urine urobilinogen measurement by test strip (mass/volume) Urine urobilinogen measurement by test strip (mass/volume) 0.2 0.2 - 1 02/05/2018 [facility] Serum or plasma amylase measurement (enzymatic activity/volume) Serum or plasma amylase measurement (enzymatic activity/volume) 48 25 - 125 02/05/2018 [facility] Serum or plasma chorionic gonadotropin measurement (mass/volume) Serum or plasma chorionic gonadotropin measurement (mass/volume) null 0 - 10 02/05/2018 [facility] Serum or plasma lipase measurement (enzymatic activity/volume) Serum or plasma lipase measurement (enzymatic activity/volume) 15 8 - 78 02/05/2018 [facility] Serum or plasma magnesium measurement (mass/volume) Serum or plasma magnesium measurement (mass/volume) 2.1 1.3 - 2.1 02/05/2018 [facility] Urine human chorionic gonadotropin (hCG) detection Urine human chorionic gonadotropin (hCG) detection NEGATIVE NEGATIVE 07/20/2017 [facility] Vital Signs Vital Sign Value Date Comments Source Encounters Location Location Details Encounter Type Encounter Number Reason For Visit Attending Provider ADM Date DC Date Status Source Registered Surgical Day [facility] [id number] [facility] 05/11/2017 [facility] Registered [facility] [id number] [facility] 07/20/2017 [facility] Discharged Inpatient (obs) [id number] MESERET MOTT MD 02/05/2018 02/08/2018 [facility] Procedures Procedure Code Date Perfomer Comments Source Laparoscopic appendectomy [id number] 02/06/2018 PANTERA [facility] Computed tomography of abdomen and pelvis with contrast [id number] 02/05/2018 MARCIA [facility] CORRECTION HALLUX VALGUS [id number] 07/20/2017 [facility] CORRECTION HALLUX VALGUS [id number] 05/11/2017 [facility]
[2018-08-09] MEDS ORDERED: MORPHINE SULFATE INJ 4 MG/ML INJ 1ML IV STA (12:12)
[2018-08-09] MEDS ORDERED: CEFTRIAXONE SOD 1 GM/NS 50 ML 50 ML IV STA (12:12)
[2018-08-09] MEDS ORDERED: SODIUM CHLORIDE 0.9% 1000ML 1,000 ML IV STA (12:12)
[2018-08-09] MEDS ORDERED: ONDANSETRON HCL INJ 2MG/ML 2ML 2 MG/ML VIAL IV STA (12:12)
[2018-08-09 12:36] LABS: PREGNANCY TEST, URINE NEGATIVE (NEGATIVE)
[2018-08-09 12:46] LABS: BASOPHILS % 0.3 % (0.0-1.0); EOSINOPHILS # (AUTO) 0.1 (0.0-0.4); EOSINOPHILS % 1.8 % (0.0-6.0); HEMATOCRIT 33.5 % (34.2-44.1); HEMOGLOBIN 11.3 g/dL (12.0-16.0); LYMPHOCYTES # (AUTO) 2.1 (1.0-3.2); MEAN CORPUSCULAR HEMOGLOBIN 31.3 pg (28-32); MEAN CORPUSCULAR HGB CONC 33.7 g/dL (31-35); MEAN CORPUSCULAR VOLUME 92.8 fL (81-99); MONOCYTES # (AUTO) 0.6 (0.2-0.8); MONOCYTES % 8.5 % (4.4-11.3); NEUTROPHILS # (AUTO) 4.2 (2.1-6.9); PLATELET COUNT 288 x10e3/uL (140-360); RED BLOOD COUNT 3.61 x10e6/uL (3.6-5.1); RED CELL DISTRIBUTION WIDTH 12.7 % (11.7-14.4)
[2018-08-09 12:52] LABS: CLARITY,URINE SL CLOUDY (CLEAR); COLOR,URINE YELLOW (YELLOW); KETONES,URINE NEGATIVE (NEGATIVE); LEUKOCYTE ESTERASE ,URINE NEGATIVE (NEGATIVE); NITRITE,URINE NEGATIVE (NEGATIVE); PROTEIN,URINE DIPSTICK NEGATIVE (NEGATIVE); URINE UROBILINOGEN 1 mg/dL (0.2 - 1)
[2018-08-09 12:53] LABS: BILIRUBIN,URINE NEGATIVE (NEGATIVE)
[2018-08-09 13:05] LABS: BACTERIA,URINE FEW /HPF; EPITHELIAL CELLS,URINE MANY /LPF
[2018-08-09 13:06] LABS: ALANINE AMINOTRANSFERASE 23 IU/L (0-55); ALBUMIN 3.6 g/dL (3.5-5.0); ALBUMIN/GLOBULIN RATIO 1.1 (0.8-2.0); ALKALINE PHOSPHATASE 49 IU/L (40-150); BLOOD UREA NITROGEN 6 mg/dL (7-26); BUN/CREATININE RATIO 9 (6-25); CALCIUM 9.8 mg/dL (8.4-10.2); CARBON DIOXIDE 29 mmol/L (22-29); CHLORIDE 101 mmol/L (98-107); CREATININE, SERUM 0.69 mg/dL (0.57-1.11); EST GLOMERULAR FILTRATION RATE > 60 ML/MIN (60-); GLUCOSE 91 mg/dL (74-118); SODIUM 137 mmol/L (136-145)
[2018-08-09] MEDS ORDERED: IOPAMIDOL 370 MG/ML 200 ML INFUS..BTL INJ ONE (15:03)
[2018-08-09] MEDS ORDERED: SODIUM CHLORIDE 0.9% 50ML 50 ML ONE (15:03)
[2018-08-09] MEDS ORDERED: HYDROCODONE/APAP 7.5MG-325MG 1 EA TAB PO NR (15:30)
--- NOTE | 2018-08-09 15:36 | Diagnostic Imaging Report ---
EXAMINATION: CT of the abdomen and pelvis with contrast. TECHNIQUE: Spiral CT images of the abdomen and pelvis were performed from the lung bases to the lesser trochanters after the intravenous administration of 100 cc of Isovue-370 and the oral administration of water. Coronal and sagittal reformatted images were obtained. COMPARISON: 02/05/2018 CLINICAL HISTORY:Bilateral inguinal hernia repair one week ago, fever, abdominal pain DISCUSSION: ABDOMEN/PELVIS: LOWER THORAX:Unremarkable. HEPATOBILIARY: No focal hepatic lesions. No intra-or extrahepatic biliary ductal dilation. The gallbladder is normal. SPLEEN: No splenomegaly. PANCREAS: No focal masses or ductal dilatation. ADRENALS: No adrenal nodules. KIDNEYS/URETERS: No hydronephrosis, stones, or solid mass lesions. PELVIC ORGANS/BLADDER: Urinary bladder is incompletely distended with mild perivesicular inflammation. Uterus is neutral in position and appears normal. Left ovarian cyst or dominant follicle. PERITONEUM/RETROPERITONEUM: No ascites. No pneumoperitoneum. LYMPH NODES: No pelvic sidewall, retroperitoneal, or mesenteric lymphadenopathy. VESSELS: Abdominal aorta, major branch vessels, and iliac arterial systems are patent without aneurysmal dilatation. Incidental note of a circumaortic left renal vein. Portal vein splenic vein and central superior mesenteric vein are patent. GI TRACT: The large bowel shows no evidence of distention or wall thickening. Gas and fecal material are noted throughout. Status post. Appendectomy. 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 No small bowel dilatation to suggest obstruction. BONES AND SOFT TISSUE: No osseous destructive lesions. Subcutaneous gas and soft tissue stranding in the low anterior abdominal wall fat. No loculated fluid collection IMPRESSION: Low anterior abdominal wall subcutaneous gas is presumably postsurgical in nature, as patient reports history of recent hernia repair. No drainable fluid collection or pneumoperitoneum. Mild inflammatory changes adjacent to the urinary bladder are nonspecific but may be seen in the setting of cystitis. Correlation with urinalysis is suggested. Signed by: Dr. Abdulaziz Rehman M.D. on 08/09/2018 3:33 PM
[2018-08-09 16:14] VITALS: BP 145/90
== END 2018-08-09 16:19 | disposition home or self-care (01) ==
LOC: ER 11:33
DX: G89.18 Other acute postprocedural pain (principal); R10.31 Right lower quadrant pain; Z98.84 Bariatric surgery status
CPT/HCPCS: 36415; 74177; 80053; 81001; 81025; 85025; 87086; 99284; J0696; J2405; J7030; Q9967